=== PATIENT | male | born 1985 | race Caucasian/White ===

== ENCOUNTER 2016-12-12 15:46 | Emergency (ER) | payer OTHER ==
--- NOTE | 2016-12-12 18:32 | DIAGNOSTIC IMAGING REPORT ---
PROCEDURE: CT ABD/PELVIS WITH CONTRAST CLINICAL INDICATION: RECTAL ABSCESS TECHNIQUE: 125 ml of Isovue 300 were injected intravenously and axial images were obtained of the entire abdomen and pelvis with sagittal and coronal reformations. COMPARISON: None. FINDINGS: ABDOMEN: Lung base are clear. Heart size is normal. Liver, gallbladder, pancreas, spleen, adrenal glands, kidneys and abdominal aorta are normal. Malrotation of the bowel. Thickened terminal ileum. Wall thickening from the transverse to the proximal sigmoid colon but most severe in the descending colon , with adjacent inflammatory changes. No evidence of diverticula, abscess or free air. PELVIS: Normal appendix. Normal prostate and bladder. There is a 4 x 2 x 1 cm subcutaneous hypodense collection and medial aspect of the left buttock which may represent a small perirectal abscess versus phlegmon. No suspicious osseous lesions. IMPRESSION: 1. Thickened terminal ileum with inflammatory changes from the transverse to the proximal sigmoid colon, most prominent in the descending colon, suggestive of Crohn disease. No abscess or free air 2. Left perirectal abscess versus phlegmon 3. Bowel malrotation 4. Results discussed with Kaitlynn Sun All CT scans at this facility use dose modulation, iterative reconstruction, and/or weight-based dosing when appropriate to reduce radiation dose to as low as reasonably achievable.
--- NOTE | 2016-12-12 19:28 | ED CLINICAL REPORT ---
Clinical Report - Physicians/Mid Levels [facility] [address] [place] [address] 12/12/2016 15:47 Patient: HARVEY GAMBOA Time Seen: 16:05; initial patient contact, initial documentation, patient care assumed. Arrived- By private vehicle. Historian- patient. HISTORY OF PRESENT ILLNESS Chief Complaint: LESION. This started about 1 weeks ago and is still present and worsening. It was abrupt in onset and has been constant. Not itchy. It is described as painful and burning. It has been located on the perineum and in the perianal area. No cause has been identified. (c/o x2 abscesses, one near rectum, and the other one in the perineum area). Similar symptoms previously: Several times, worse. ( has had surgery prior for rectal abscess and fistula). Recent medical care: Not recently seen/assessed. REVIEW OF SYSTEMS The patient has had fever and chills. No difficulty breathing, abdominal pain, diarrhea or vomiting. All systems otherwise negative, except as recorded above. PAST HISTORY See nurses notes. PROBLEMS: Asbergers. Crohns. --16:12 Magan Stewart R.N. ADDITIONAL SURGERIES: Fistula. --16:09 Magan Stewart R.N. SOCIAL HISTORY Never smoker. No alcohol use or drug use. No recent travel. Is a local resident. FAMILY HISTORY Negative. ADDITIONAL NOTES The nursing notes have been reviewed with agreement regarding the chief complaint, HPI, ROS, PMH and patient medications and allergies. PHYSICAL EXAM Vital Signs: 12/12/2016 15:59 BP: 150/73. HR: 104. RR: 18. O2 saturation: 93%. Temp: 102.8 F. Pain level now: 2/10. Have been reviewed as abnormal and appear to be correct. Blood pressure normal. Tachycardic. Respiratory rate normal. Febrile. Oxygen saturation normal. Appearance: Alert. Oriented X3. No acute distress. Anxious. Eyes: Pupils equal, round and reactive to light. Conjunctivae and eyelids normal. Neck: Neck supple. CVS: Normal heart rate and rhythm. Heart sounds normal. Respiratory: No respiratory distress. Breath sounds normal. Chest nontender. Abdomen: Nontender. No organomegaly. Rectal: Tenderness upon rectal exam. Small perirectal abscess with fluctuance. No pointing, drainage or cellulitis. Skin: Skin warm and dry. Normal skin color. No rash. Normal skin turgor. Single medium abscess with fluctuance and pointing to the perianal area and perirectal area. No drainage or cellulitis. Extremities: Normal external inspection. Extremities nontender. Neuro: Oriented X 3. No motor deficit. No sensory deficit. LABS, X-RAYS, AND EKG Abdominal CT: . IMPRESSION: 1. Thickened terminal ileum with inflammatory changes from the transverse to the proximal sigmoid colon, most prominent in the descending colon, suggestive of Crohn disease. No abscess or free air 2. Left perirectal abscess versus phlegmon 3. Bowel malrotation 4. Results discussed with Kaitlynn Sun All CT scans at this facility use dose modulation, iterative reconstruction, and/or weight-based dosing when appropriate to reduce radiation dose to as low as reasonably achievable. Electronically Final signed by:Jitendra Reina MD 12/12/2016 6:32:30 PM Technologist: DARYN. The study was interpreted by the radiologist and discussed with the radiologist. Interpretation time: 1805. Laboratory Tests: CBC w Diff: (ABBI: 12/12/2016 16:30) ( MsgRcvd 12/12/2016 16:49) Final results Test Result Flag Units (Reference) WHITE BLOOD COUNT 7.9 K/uL (4.5-11.5) RED BLOOD COUNT 4.02 L M/uL (4.50-5.90) HEMOGLOBIN 9.4 L gm/dL (13.5-17.5) HEMATOCRIT 29.5 L % (41.0-53.0) MEAN CELL VOLUME 73 L fL (80-100) MEAN CORPUSCULAR HGB 23 L pg (26-34) MEAN CORPUSCULAR HGB CONC 32 g/dL (31-37) RED CELL DISTRIBUTION WIDTH 17.6 H % (11.6-14.8) PLATELET COUNT 563 H K/uL (150-400) NEUTROPHIL % 77.4 H % (50-75) LYMPH % 8.1 L % (25-40) MONO % 11.1 % (3-14) EOSINOPHIL % 3.3 % (0-4) BASOPHIL % 0.1 % (0-2) Lactate, Serum: (ABBI: 12/12/2016 16:30) ( [facility] 12/12/2016 17:16) Final results Test Result Flag Units (Reference) LACTIC ACID 1.0 mmol/L (0.4-2.0) [id number]: (ABBI: 12/12/2016 16:30) ( [facility] 12/12/2016 17:19) Final results Test Result Flag Units (Reference) PROCALCITONIN <0.5 ng/mL (0-0.5) PCT Concentration: Interpretation : Risk/option for action PCT <=0.5 ng/mL : Systemic : Low risk forinfection(sepsis): progression to severeis not likely. : systemic infection.Local bacterial : CAUTION-PCT levelsinfection is : below 0.5 ng/mL do notpossible. : exclude an infection,because localizedinfections (withoutsystemic signs) may beassociated with suchlow levels. If PCT ismeasured very earlyafter a bacterialchallenge (usually <6hours), these valuesmay still be low. Inthis case PCT shouldbe re-assessed 6-24hours later. PCT >0.5 and : Systemic infection: Moderate risk for<= 2 ng/mL : (sepsis) is : progression to severepossible, but : systemic infection.other conditions : The patient should beare known to : closely monitoredelevate PCT. : both clinically andby re-assessing PCTwithin 6-24 hours. PCT > 2 ng/mL : Systemic infection: High risk for(sepsis) is likely: progression to severeunless other : systemic infection.causes are known. : PCT >= 10 ng/mL : Important systemic: High likelihood ofinflammatory : severe sepsis orresponse, almost : septic shock.exclusively due to:severe bacterial :sepsis or septic :shock. : CMP: (ABBI: 12/12/2016 16:30) ( MsgRcvd 12/12/2016 17:10) Final results Test Result Flag Units (Reference) GLUCOSE 116 H mg/dL (70-110) BUN 10 mg/dL (7-18) CREATININE 1.0 mg/dL (0.6-1.3) Estimated GFR >60 mL/min Estimated GFR- >60 mL/min Note: Persistent reduction over 3 months in eGFR<60 mL/min/1.73 m2 defines CKD. Patients with eGFR values>=60 mL/min/1.73 m2 may also have CKD if evidence ofpersistent proteinuria. Additional information may be foundat www.[email or web address].org. SODIUM 138 mmol/L (136-145) POTASSIUM 3.6 mmol/L (3.5-5.1) CHLORIDE 103 mmol/L (98-107) CARBON DIOXIDE 28 mmol/L (21-32) CALCIUM 8.1 L mg/dL (8.5-10.1) TOTAL PROTEIN 6.8 g/dL (6.4-8.2) ALBUMIN 2.5 L g/dL (3.3-5.0) BILIRUBIN, TOTAL 0.3 mg/dL (0.0-1.0) ALKALINE PHOSPHATASE 48 U/L (46-116) AST (SGOT) 11 L U/L (15-37) ALT (SGPT) 16 U/L (12-78) . PROGRESS AND PROCEDURES Incision & Drainage of Abscess: The abscess is located in the perianal area. The risks of the procedure, benefits and alternatives were explained. Consent was obtained. Local anesthesia provided using 1% lidocaine. Skin cleansed with Betadine. The abscess was incised with a #11 surgical blade. A small amount of pus was drained. Cavity was irrigated with saline and packed with gauze. Sample obtained for cultures. Estimated blood loss: 30 mL. ( abscess started to open and drain during visit here, pt had maxi pad on and it was filled with yellow drainage, probed to break up inoculates, packed with 1/4 inch plain, no iodoform available, pt tolerated procedure well even with his anxiety, nurse Magan at bedside as insurance agency manager). Course of Care: 1819. pt aware of results and waiting for surgery battery container finishing hand to call me back, possible admit/transfer. Discussed case with on-call health care provider, ([phone] Bucio, surgery, pt 's case discussed, asked to do simple I&D, at least open it and put packing in it). Reviewed test results. Agreed upon treatment plan. Health care provider will see patient in office. Patient counseled in person regarding the patient's stable condition, test results and diagnosis. Differential Diagnosis: I considered diverticulitis, colon cancer, ulcerative colitis, Crohn's disease, intussusception, small bowel obstruction, adhesions, bowel ischemia, bowel perforation, functional bowel problems and obstipation as a possible cause of abdominal pain in this patient. This is a partial list of diagnoses considered. Other possible considerations: rectal abscess, fistula. Above considerations are based on history, physical exam, reassessment, laboratory data and other information. Differential diagnosis was discussed with patient. Disposition: Discharged home in good and improved condition (19:28). Condition: good and stable. CLINICAL IMPRESSION Single deep abscess to the perirectal region with incision and drainage. INSTRUCTIONS (remove packing in 24-48 hrs). Warnings: GENERAL WARNINGS: Return or contact your physician immediately if your condition worsens or changes unexpectedly, if not improving as expected, or if other problems arise. Specifically return if problem worsens. Prescription Medications: Zofran 4 mg: Take 1 orally every six hours as needed for nausea/vomiting. Dispense ten (10). No refills. Substitution is permissible. Prednisone 20 mg: take 3 orally every day for 5 days. Dispense fifteen (15). No refills. Bactrim DS 800 mg / 160 mg: take 1 tablet orally every 12 hours for 10 days. No refill. Clindamycin 150 mg: take 1 capsule orally every 8 hours for 10 days. No refill. Dunn Loring 5 mg / 325 mg tablets: take 1 to 2 orally every 6 hours as needed for pain. Dispense fifteen (15). No refills. Substitution is permissible. Motrin 800 mg tablets: take 1 tablet orally every 8 hours as needed for pain. Dispense thirty (30). No refills. Substitution is permissible. Understanding of the discharge instructions verbalized by patient. Follow-up with: Nico Bucio MD, General Surgeon, , [facility], [address] [place] [address] Follow up in about two days even if well. Call for an appointment. Summary of care provided to patient. (Electronically signed by Kaitlynn Sun A.R.N.P. 12/12/2016 22:48)
--- NOTE | 2016-12-12 19:28 | ED ORDER SUMMARY ---
..... Patient: HARVEY GAMBOA OrderSheet [facility] VisitID: [id number] [place] [address] 31y, M Registration Date/Time: 12/12/2016 ORDER SHEET Weight: 109.3 kg (stated) Allergies: No Known Drug Allergy GENERAL ORDERS: Blood Culture (Yes) (flagyl) Urgent (16:17 12/12/2016 HBivens A.R.N.P.) (Ack 16:25 LNations ER Tech1) (18:30 JRomanelli R.N.) CBC w Diff Urgent (16:17 12/12/2016 HBivens A.R.N.P.) (Ack 16:25 LNations ER Tech1) (16:45 JRomanelli R.N.) CMP Urgent (16:17 12/12/2016 HBivens A.R.N.P.) (Ack 16:25 LNations ER Tech1) (16:45 JRomanelli R.N.) Lactate, Serum Urgent (16:17 12/12/2016 HBivens A.R.N.P.) (Ack 16:25 LNations ER Tech1) (16:45 JRomanelli R.N.) PCT (Procalcitonin) Urgent (16:17 12/12/2016 HBivens A.R.N.P.) (Ack 16:25 LNations ER Tech1) (16:45 JRomanelli R.N.) CT Abd/Pel w Cont (No) (pending) Urgent (16:18 12/12/2016 HBivens A.R.N.P.) (Ack 16:25 LNations ER Tech1) (17:44 MCampbell) Vitals (18:27 12/12/2016 HBivens A.R.N.P.) (Ack 18:28 LNations ER Tech1) (18:39 JRomanelli R.N.) I&D Tray (18:41 12/12/2016 HBivens A.R.N.P.) (19:33 JRomanelli R.N.) MEDICATION ORDERS: Acetaminophen PO 1,000 mg (NOW) (16:16 12/12/2016 HBivens A.R.N.P.) (17:02 JRomanelli R.N.) Lidocaine Injection 1% plain (NOW) (18:41 12/12/2016 HBivens A.R.N.P.) (19:34 JRomanelli R.N.) IV FLUIDS: IV NS : initial bolus 1000 mL (1000 mL/hr), then none - (NOW) (16:16 12/12/2016 HBivens A.R.N.P.) (17:03 JRomanelli R.N.) IV Saline Lock (16:17 12/12/2016 HBivens A.R.N.P.) (17:03 JRomanelli R.N.) Flagyl IV 500 mg/100mL (NOW) (18:21 12/12/2016 HBivens A.R.N.P.) (19:00 JRomanelli R.N.) Levaquin IV 750 mg/150 mL (NOW) (18:21 12/12/2016 HBivens A.R.N.P.) (20:34 JRomanelli R.N.) Solu-MEDROL IV 250 mg (NOW) (18:21 12/12/2016 HBivens A.R.N.P.) (19:01 JRomanelli R.N.) ORDER SHEET NOTES: [Electronically signed by Kaitlynn SunR.N.P. (22:48 12/12/2016)] [Electronically signed by Magan Stewart R.N. (00:14 12/13/2016)] [Electronically locked/signed by Magan Stewart R.N. (00:14 12/13/2016)]
--- NOTE | 2016-12-12 19:28 | ED NURSING NOTES ---
Clinical Report - Nurses [facility] [address] [place] [address] 12/12/2016 15:47 [id number] Triage time 15:55 Dec 12 2016. Acuity: LEVEL 3. Chief Complaint: SKIN LESION. Alert. PARVEZ COMA SCORE: [place] Coma Scale: 15- eyes open spontaneously (4); best verbal response- oriented x 4 (5); best motor response- obeys commands (6). --16:17 Magan Stewart R.N. 15:59 12/12/16. BP: 150/73. HR: 104. RR: 18. O2 saturation: 93% on room air. Temp: 102.8 F (oral). Pain level now: 07/22. --16:17 Magan Stewart R.N. Weight: 109.3 kg stated. Height/Length: 66 inches Per Patient. BMI: 38.9. --16:00 Magan Stewart R.N. Medications Flagyl Oral 500 mg, 2x a day. Remicade Intravenous (Solution Reconstituted 100 mg) 500mg, every 8 weeks. --16:03 Magan Stewart R.N. AmLODIPine Besylate Oral 5 mg, daily. --16:04 Magan Stewart R.N. Tylenol Oral 500 mg, 4x a day. --16:05 Magan Stewart R.N. Oxyfloxcin otic gtts 10 gtts , daily. --16:07 Magan Stewart R.N. Allergies No Known Drug Allergy. --16:04 Magan Stewart R.N. Medication/allergy information source: the patient. --16:17 Magan Stewart R.N. History ( Perineal Abscesses. Pt states that he has two abscesses located betweenthe scrotum and the anus.). Reported as (perineum). Onset. (about 7 days ago). It is described as burning and painful. Treatment [employer]: (Antibiotic). PAST MEDICAL HX: Immunizations: up-to-date. SOCIAL HX: No alcohol use or drug use. ABUSE ASSESSMENT: No report of abuse. FALL RISK ASSESSMENT: Fall risk assessment completed. No fall risk identified. NUTRITIONAL RISK ASSESSMENT: The nutritional risk assessment revealed no deficiencies. FUNCTIONAL ASSESSMENT: Functional assessment: no impairments noted. LEARNING NEEDS ASSESSMENT: The learning needs assessment revealed no barriers. SKIN INTEGRITY ASSESSMENT: Skin integrity risk assessment completed. No skin integrity risk identified. --16:17 Magan Stewart R.N. PROBLEMS: Asbergers. Crohns. --16:12 Magan Stewart R.N. ADDITIONAL SURGERIES: Fistula. --16:09 Magan Stewart R.N. Interventions ID band on patient. To treatment room. --16:17 Magan Stewart R.N. PHYSICAL ASSESSMENT Ambulatory to room. GENERAL / NEURO / PSYCH: Alert. Appears in pain. Oriented X 4. HEENT: Mucous membranes are pink. RESPIRATORY: Respirations not labored. CVS: Cardiac rhythm: sinus tachycardia. SKIN: Skin is intact, warm and dry. Skin tenderness present- perineal. --16:18 Magan Stewart R.N. NURSING PROGRESS NOTES Patient gowned. Reassurance given to the patient. Patient identifiers checked. Call light placed in reach. Side rails up x 2. Bed placed in lowest position. Brakes of bed on. Patient ready for evaluation- chart flagged and [employer] notified. --16:19 Magan Stewart R.N. 16:38 12/12/2016 Site #1 started via IV in the left upper arm with an 20g angiocath, with aseptic technique and good blood return; one attempt. Blood drawn: rainbow set and cultures x1. Labeled in the presence of the patient and sent to the lab. Saline lock flushed with 10 mL saline. --17:03 Magan Stewart R.N. 16:47 12/12/2016 Acetaminophen (APAP) PO Tablets 1000 mg given. Allergies verified and confirmed 5 rights. --17:02 Magan Stewart R.N. 16:53 12/12/2016 Started bag #1 1000 mL IV Fluids IV NS (Saline); at 1000 mL/hr over 60 minute(s) via site #1 via IV pump. Allergies verified and confirmed 5 rights. IV patency established. IV site checked: no pain, redness, or swelling. IV flushed thoroughly pre- and post-medication administration. --17:03 Magan Stewart R.N. <<STRICKEN ENTRY-- 17:30 12/12/16. Patient transported to CT by stretcher with tech. --17:33 Magan Stewart R.N. --END STRIKE>> Correction --18:31 Magan Stewart R.N. <<STRICKEN ENTRY-- 18:30 12/12/16. Patient returned from CT by stretcher with tech. --18:31 Magan Stewart R.N. --END STRIKE>> Correction --18:39 Magan Stewart R.N. <<STRICKEN ENTRY-- 18:20. Patient transported to CT by stretcher with tech. --18:32 Magan Stewart R.N. --END STRIKE>> Correction --18:35 Magan Stewart R.N. 18:30 12/12/16. BP: 148/81. HR: 95. RR: 16. O2 saturation: 94%. Temp: 100.7 F (oral). Pain level now: 0/10. --18:38 Magan Stewart R.N. Patient transported to CT by stretcher with tech. ([id number]). --18:38 Magan Stewart R.N. 18:36 12/12/2016 IV Fluids IV NS Bag Change: bag #1 infused. Total amount infused: 1000. STARTED bag #2 (1000 mL) at 250 mL/hr via IV pump. Confirmed 5 rights. IV patency established. IV site checked: no pain, redness, or swelling. IV flushed thoroughly. --18:46 Magan Stewart R.N. 18:46 12/12/2016 SOLU-MEDROL (MethylPREDNISolone Sodium Succ) IVP 250 mg given over 2 minute(s) via site #1. Allergies verified and confirmed 5 rights. IV patency established. IV site checked: no pain, redness, or swelling. IV flushed thoroughly pre- and post-medication administration. IVP given by RN. --19:01 Magan Stewart R.N. 18:50 12/12/2016 Started 500 mg of Flagyl (MetroNIDAZOLE in NaCl) IVPB in bag #1 100 mL; at 100 mL/hr over 60 minute(s) via site #1 via IV pump. Allergies verified and confirmed 5 rights. IV patency established. IV site checked: no pain, redness, or swelling. IV flushed thoroughly pre- and post-medication administration. --19:00 Magan Stewart R.N. 19:09 12/12/2016 Lidocaine 1% Injectable 20mL * Subcutaneous 8mL --19:34 Magan Stewart R.N. 19:30 12/12/16. BP: 153/78. HR: 97. RR: 18. O2 saturation: 97% on room air. Pain level now: 10/19. --20:29 Magan Stewart R.N. 19:50 12/12/2016 Levaquin * IVPB 750 mg in 150 mL NSS --20:34 Magan Stewart R.N. 19:50 12/12/2016 Flagyl IVPB Discontinued: bag #1 infused. Total amount infused: 100 mL. IV patency established. IV site checked: no pain, redness, or swelling. IV flushed thoroughly. --20:31 Magan Stewart R.N. 20:30 12/12/16. BP: 150/74. HR: 95. RR: 18. O2 saturation: 98% on room air. --20:37 Magan Stewart R.N. 21:20 12/12/2016 Site #1 removed upon discharge. Catheter intact. Manual pressure, pressure dressing and bandaid applied. --22:49 Magan Stewart R.N. 21:20 12/12/2016 IV Fluids IV NS Discontinued: bag #2 discontinued upon discharge. Total amount infused: 700 mL. IV patency established. IV site checked: no pain, redness, or swelling. IV flushed thoroughly. --22:46 Magan Stewart R.N. 21:20 12/12/2016 Levaquin IVPB Discontinued: bag #1 infused. Total amount infused: 150 mL. IV patency established. IV site checked: no pain, redness, or swelling. IV flushed thoroughly. --22:47 Magan Stewart R.N. DISPOSITION / DISCHARGE <<STRICKEN ENTRY-- 17:15 12/12/16. BP: 126/47. HR: 57. RR: 20. O2 saturation: 98% on room air. Temp: 96.8 F (oral). Pain level now: 0/10. --17:44 Magan Stewart R.N. --END STRIKE>> Charted on wrong patient. --17:53 Magan Stewart R.N. 21:20 12/12/16. BP: 142/80. HR: 85. RR: 18. O2 saturation: 99% on room air. Temp: 98.8 F (oral). Pain level now: 2/10. Additional comments: Perineal pain. --22:37 Magan Stewart R.N. Departure time: 2124. --22:38 Magan Stewart R.N. 21:25. Condition at departure: improved. No learning barriers present. Reviewed medication(s) (prescription given to pt). Reviewed wound care instructions. Reviewed referral to family practice. Patient verbalized understanding. Written instructions provided in Georgian. The patient was discharged by the nurse practitioner. He was discharged home and accompanied by family. He left the Emergency Department ambulatory and via private vehicle. Family member driving. --22:43 Magan Stewart R.N. Locked/Released at 12/13/2016 0:14 by Magan Stewart R.N.
--- NOTE | 2016-12-12 19:28 | ED CLINICAL REPORT ---
Clinical Report - Physicians/Mid Levels Formerly [facility] [address] [place] [address] 12/12/2016 15:47 Patient: HARVEY GAMBOA Time Seen: 16:05; initial patient contact, initial documentation, patient care assumed. Arrived- By private vehicle. Historian- patient. HISTORY OF PRESENT ILLNESS Chief Complaint: LESION. This started about 1 weeks ago and is still present and worsening. It was abrupt in onset and has been constant. Not itchy. It is described as painful and burning. It has been located on the perineum and in the perianal area. No cause has been identified. (c/o x2 abscesses, one near rectum, and the other one in the perineum area). Similar symptoms previously: Several times, worse. ( has had surgery prior for rectal abscess and fistula). Recent medical care: Not recently seen/assessed. REVIEW OF SYSTEMS The patient has had fever and chills. No difficulty breathing, abdominal pain, diarrhea or vomiting. All systems otherwise negative, except as recorded above. PAST HISTORY See nurses notes. PROBLEMS: Asbergers. Crohns. --16:12 Magan Stewart R.N. ADDITIONAL SURGERIES: Fistula. --16:09 Magan Stewart R.N. SOCIAL HISTORY Never smoker. No alcohol use or drug use. No recent travel. Is a local resident. FAMILY HISTORY Negative. ADDITIONAL NOTES The nursing notes have been reviewed with agreement regarding the chief complaint, HPI, ROS, PMH and patient medications and allergies. PHYSICAL EXAM Vital Signs: 12/12/2016 15:59 BP: 150/73. HR: 104. RR: 18. O2 saturation: 93%. Temp: 102.8 F. Pain level now: 2/10. Have been reviewed as abnormal and appear to be correct. Blood pressure normal. Tachycardic. Respiratory rate normal. Febrile. Oxygen saturation normal. Appearance: Alert. Oriented X3. No acute distress. Anxious. Eyes: Pupils equal, round and reactive to light. Conjunctivae and eyelids normal. Neck: Neck supple. CVS: Normal heart rate and rhythm. Heart sounds normal. Respiratory: No respiratory distress. Breath sounds normal. Chest nontender. Abdomen: Nontender. No organomegaly. Rectal: Tenderness upon rectal exam. Small perirectal abscess with fluctuance. No pointing, drainage or cellulitis. Skin: Skin warm and dry. Normal skin color. No rash. Normal skin turgor. Single medium abscess with fluctuance and pointing to the perianal area and perirectal area. No drainage or cellulitis. Extremities: Normal external inspection. Extremities nontender. Neuro: Oriented X 3. No motor deficit. No sensory deficit. LABS, X-RAYS, AND EKG Abdominal CT: . IMPRESSION: 1. Thickened terminal ileum with inflammatory changes from the transverse to the proximal sigmoid colon, most prominent in the descending colon, suggestive of Crohn disease. No abscess or free air 2. Left perirectal abscess versus phlegmon 3. Bowel malrotation 4. Results discussed with Kaitlynn Sun All CT scans at this facility use dose modulation, iterative reconstruction, and/or weight-based dosing when appropriate to reduce radiation dose to as low as reasonably achievable. Electronically Final signed by:Jitendra Reina MD 12/12/2016 6:32:30 PM Technologist: DARYN. The study was interpreted by the radiologist and discussed with the radiologist. Interpretation time: 1805. Laboratory Tests: CBC w Diff: (ABBI: 12/12/2016 16:30) ( MsgRcvd 12/12/2016 16:49) Final results Test Result Flag Units (Reference) WHITE BLOOD COUNT 7.9 K/uL (4.5-11.5) RED BLOOD COUNT 4.02 L M/uL (4.50-5.90) HEMOGLOBIN 9.4 L gm/dL (13.5-17.5) HEMATOCRIT 29.5 L % (41.0-53.0) MEAN CELL VOLUME 73 L fL (80-100) MEAN CORPUSCULAR HGB 23 L pg (26-34) MEAN CORPUSCULAR HGB CONC 32 g/dL (31-37) RED CELL DISTRIBUTION WIDTH 17.6 H % (11.6-14.8) PLATELET COUNT 563 H K/uL (150-400) NEUTROPHIL % 77.4 H % (50-75) LYMPH % 8.1 L % (25-40) MONO % 11.1 % (3-14) EOSINOPHIL % 3.3 % (0-4) BASOPHIL % 0.1 % (0-2) Lactate, Serum: (ABBI: 12/12/2016 16:30) ( [facility] 12/12/2016 17:16) Final results Test Result Flag Units (Reference) LACTIC ACID 1.0 mmol/L (0.4-2.0) [id number]: (ABBI: 12/12/2016 16:30) ( [facility] 12/12/2016 17:19) Final results Test Result Flag Units (Reference) PROCALCITONIN <0.5 ng/mL (0-0.5) PCT Concentration: Interpretation : Risk/option for action PCT <=0.5 ng/mL : Systemic : Low risk forinfection(sepsis): progression to severeis not likely. : systemic infection.Local bacterial : CAUTION-PCT levelsinfection is : below 0.5 ng/mL do notpossible. : exclude an infection,because localizedinfections (withoutsystemic signs) may beassociated with suchlow levels. If PCT ismeasured very earlyafter a bacterialchallenge (usually <6hours), these valuesmay still be low. Inthis case PCT shouldbe re-assessed 6-24hours later. PCT >0.5 and : Systemic infection: Moderate risk for<= 2 ng/mL : (sepsis) is : progression to severepossible, but : systemic infection.other conditions : The patient should beare known to : closely monitoredelevate PCT. : both clinically andby re-assessing PCTwithin 6-24 hours. PCT > 2 ng/mL : Systemic infection: High risk for(sepsis) is likely: progression to severeunless other : systemic infection.causes are known. : PCT >= 10 ng/mL : Important systemic: High likelihood ofinflammatory : severe sepsis orresponse, almost : septic shock.exclusively due to:severe bacterial :sepsis or septic :shock. : CMP: (ABBI: 12/12/2016 16:30) ( MsgRcvd 12/12/2016 17:10) Final results Test Result Flag Units (Reference) GLUCOSE 116 H mg/dL (70-110) BUN 10 mg/dL (7-18) CREATININE 1.0 mg/dL (0.6-1.3) Estimated GFR >60 mL/min Estimated GFR- >60 mL/min Note: Persistent reduction over 3 months in eGFR<60 mL/min/1.73 m2 defines CKD. Patients with eGFR values>=60 mL/min/1.73 m2 may also have CKD if evidence ofpersistent proteinuria. Additional information may be foundat www.kidney.org. SODIUM 138 mmol/L (136-145) POTASSIUM 3.6 mmol/L (3.5-5.1) CHLORIDE 103 mmol/L (98-107) CARBON DIOXIDE 28 mmol/L (21-32) CALCIUM 8.1 L mg/dL (8.5-10.1) TOTAL PROTEIN 6.8 g/dL (6.4-8.2) ALBUMIN 2.5 L g/dL (3.3-5.0) BILIRUBIN, TOTAL 0.3 mg/dL (0.0-1.0) ALKALINE PHOSPHATASE 48 U/L (46-116) AST (SGOT) 11 L U/L (15-37) ALT (SGPT) 16 U/L (12-78) . PROGRESS AND PROCEDURES Incision & Drainage of Abscess: The abscess is located in the perianal area. The risks of the procedure, benefits and alternatives were explained. Consent was obtained. Local anesthesia provided using 1% lidocaine. Skin cleansed with Betadine. The abscess was incised with a #11 surgical blade. A small amount of pus was drained. Cavity was irrigated with saline and packed with gauze. Sample obtained for cultures. Estimated blood loss: 30 mL. ( abscess started to open and drain during visit here, pt had maxi pad on and it was filled with yellow drainage, probed to break up inoculates, packed with 1/4 inch plain, no iodoform available, pt tolerated procedure well even with his anxiety, nurse Magan at bedside as atg java developer). Course of Care: 1819. pt aware of results and waiting for surgery educational specialist to call me back, possible admit/transfer. Discussed case with on-call health care provider, ([phone] Bucio, surgery, pt 's case discussed, asked to do simple I&D, at least open it and put packing in it). Reviewed test results. Agreed upon treatment plan. Health care provider will see patient in office. Patient counseled in person regarding the patient's stable condition, test results and diagnosis. Differential Diagnosis: I considered diverticulitis, colon cancer, ulcerative colitis, Crohn's disease, intussusception, small bowel obstruction, adhesions, bowel ischemia, bowel perforation, functional bowel problems and obstipation as a possible cause of abdominal pain in this patient. This is a partial list of diagnoses considered. Other possible considerations: rectal abscess, fistula. Above considerations are based on history, physical exam, reassessment, laboratory data and other information. Differential diagnosis was discussed with patient. Disposition: Discharged home in good and improved condition (19:28). Condition: good and stable. CLINICAL IMPRESSION Single deep abscess to the perirectal region with incision and drainage. INSTRUCTIONS (remove packing in 24-48 hrs). Warnings: GENERAL WARNINGS: Return or contact your physician immediately if your condition worsens or changes unexpectedly, if not improving as expected, or if other problems arise. Specifically return if problem worsens. Prescription Medications: Zofran 4 mg: Take 1 orally every six hours as needed for nausea/vomiting. Dispense ten (10). No refills. Substitution is permissible. Prednisone 20 mg: take 3 orally every day for 5 days. Dispense fifteen (15). No refills. Bactrim DS 800 mg / 160 mg: take 1 tablet orally every 12 hours for 10 days. No refill. Clindamycin 150 mg: take 1 capsule orally every 8 hours for 10 days. No refill. [place] 5 mg / 325 mg tablets: take 1 to 2 orally every 6 hours as needed for pain. Dispense fifteen (15). No refills. Substitution is permissible. Motrin 800 mg tablets: take 1 tablet orally every 8 hours as needed for pain. Dispense thirty (30). No refills. Substitution is permissible. Understanding of the discharge instructions verbalized by patient. Follow-up with: Nico Bucio MD, General Surgeon, , [facility], [address] [place] [address] Follow up in about two days even if well. Call for an appointment. Summary of care provided to patient. (Electronically signed by Kaitlynn Sun A.R.N.P. 12/12/2016 22:48)
--- NOTE | 2016-12-12 19:28 | ED ORDER SUMMARY ---
..... Patient: HARVEY GAMBOA OrderSheet [facility] VisitID: [id number] [place] [address] 31y, M Registration Date/Time: 12/12/2016 ORDER SHEET Weight: 109.3 kg (stated) Allergies: No Known Drug Allergy GENERAL ORDERS: Blood Culture (Yes) (flagyl) Urgent (16:17 12/12/2016 HBivens A.R.N.P.) (Ack 16:25 LNations ER Tech1) (18:30 JRomanelli R.N.) CBC w Diff Urgent (16:17 12/12/2016 HBivens A.R.N.P.) (Ack 16:25 LNations ER Tech1) (16:45 JRomanelli R.N.) CMP Urgent (16:17 12/12/2016 HBivens A.R.N.P.) (Ack 16:25 LNations ER Tech1) (16:45 JRomanelli R.N.) Lactate, Serum Urgent (16:17 12/12/2016 HBivens A.R.N.P.) (Ack 16:25 LNations ER Tech1) (16:45 JRomanelli R.N.) PCT (Procalcitonin) Urgent (16:17 12/12/2016 HBivens A.R.N.P.) (Ack 16:25 LNations ER Tech1) (16:45 JRomanelli R.N.) CT Abd/Pel w Cont (No) (pending) Urgent (16:18 12/12/2016 HBivens A.R.N.P.) (Ack 16:25 LNations ER Tech1) (17:44 MCampbell) Vitals (18:27 12/12/2016 HBivens A.R.N.P.) (Ack 18:28 LNations ER Tech1) (18:39 JRomanelli R.N.) I&D Tray (18:41 12/12/2016 HBivens A.R.N.P.) (19:33 JRomanelli R.N.) MEDICATION ORDERS: Acetaminophen PO 1,000 mg (NOW) (16:16 12/12/2016 HBivens A.R.N.P.) (17:02 JRomanelli R.N.) Lidocaine Injection 1% plain (NOW) (18:41 12/12/2016 HBivens A.R.N.P.) (19:34 JRomanelli R.N.) IV FLUIDS: IV NS : initial bolus 1000 mL (1000 mL/hr), then none - (NOW) (16:16 12/12/2016 HBivens A.R.N.P.) (17:03 JRomanelli R.N.) IV Saline Lock (16:17 12/12/2016 HBivens A.R.N.P.) (17:03 JRomanelli R.N.) Flagyl IV 500 mg/100mL (NOW) (18:21 12/12/2016 HBivens A.R.N.P.) (19:00 JRomanelli R.N.) Levaquin IV 750 mg/150 mL (NOW) (18:21 12/12/2016 HBivens A.R.N.P.) (20:34 JRomanelli R.N.) Solu-MEDROL IV 250 mg (NOW) (18:21 12/12/2016 HBivens A.R.N.P.) (19:01 JRomanelli R.N.) ORDER SHEET NOTES: [Electronically signed by Kaitlynn SunR.N.P. (22:48 12/12/2016)] [Electronically signed by Magan Stewart R.N. (00:14 12/13/2016)] [Electronically locked/signed by Magan Stewart R.N. (00:14 12/13/2016)]
--- NOTE | 2016-12-13 00:15 | ED MAR SUMMARY ---
..... Medication Administration Record [address] [place] [address] Patient: HARVEY GAMBOA Visit ID: [id number] 31y, M Weight: 109.3 kg Height/Length: 66 in BMI: 38.9 ALLERGIES: No Known Drug Allergy Given 16:47 12/12/2016 Magan Stewart R.N. Medication Administered: ACETAMINOPHEN [PO] (APAP), Dose: 1000 mg Tablets PO. Medication Ordered: Acetaminophen PO 1,000 mg (NOW). Start 16:53 12/12/2016 Magan Stewart R.N., Stop 21:20 12/12/2016 Magan Stewart R.N. Medication Administered: IV NS (SALINE), Dose: IV Fluids over 60 minute(s), Rate: 1000 mL/hr, Dispensed: 1000 mL bag, Site: #1 left upper arm. Medication Ordered: IV NS : initial bolus 1000 mL (1000 mL/hr), then none - (NOW). Given 18:46 12/12/2016 Magan Stewart R.N. Medication Administered: SOLU-MEDROL [IVP] (METHYLPREDNISOLONE SODIUM SUCC), Dose: 250 mg IVP over 2 minute(s), Site: #1 left upper arm. Medication Ordered: Solu-MEDROL IV 250 mg (NOW). Start 18:50 12/12/2016 Magan Stewart R.N., Stop 19:50 12/12/2016 Magan Stewart R.N. Medication Administered: FLAGYL [IVPB] (METRONIDAZOLE IN NACL), Dose: 500 mg IVPB over 60 minute(s), Rate: 100 mL/hr, Dispensed: 100 mL bag, Site: #1 left upper arm. Medication Ordered: Flagyl IV 500 mg/100mL (NOW). Given 19:09 12/12/2016 Magan Stewart R.N. Medication Administered: Lidocaine 1% Injectable 20mL *, Dose: 8mL * Subcutaneous. Medication Ordered: Lidocaine Injection 1% plain (NOW). Start 19:50 12/12/2016 Magan Stewart R.N., Stop 21:20 12/12/2016 Magan Stewart R.N. Medication Administered: Levaquin *, Dose: 750 mg * IVPB. Medication Ordered: Levaquin IV 750 mg/150 mL (NOW).
--- NOTE | 2016-12-13 00:15 | ED MAR SUMMARY ---
..... Medication Administration Record [facility] [address] [place] [address] Patient: HARVEY GAMBOA Visit ID: [id number] 31y, M Weight: 109.3 kg Height/Length: 66 in BMI: 38.9 ALLERGIES: No Known Drug Allergy Given 16:47 12/12/2016 Magan Stewart R.N. Medication Administered: ACETAMINOPHEN [PO] (APAP), Dose: 1000 mg Tablets PO. Medication Ordered: Acetaminophen PO 1,000 mg (NOW). Start 16:53 12/12/2016 Magan Stewart R.N., Stop 21:20 12/12/2016 Magan Stewart R.N. Medication Administered: IV NS (SALINE), Dose: IV Fluids over 60 minute(s), Rate: 1000 mL/hr, Dispensed: 1000 mL bag, Site: #1 left upper arm. Medication Ordered: IV NS : initial bolus 1000 mL (1000 mL/hr), then none - (NOW). Given 18:46 12/12/2016 Magan Stewart R.N. Medication Administered: SOLU-MEDROL [IVP] (METHYLPREDNISOLONE SODIUM SUCC), Dose: 250 mg IVP over 2 minute(s), Site: #1 left upper arm. Medication Ordered: Solu-MEDROL IV 250 mg (NOW). Start 18:50 12/12/2016 Magan Stewart R.N., Stop 19:50 12/12/2016 Magan Stewart R.N. Medication Administered: FLAGYL [IVPB] (METRONIDAZOLE IN NACL), Dose: 500 mg IVPB over 60 minute(s), Rate: 100 mL/hr, Dispensed: 100 mL bag, Site: #1 left upper arm. Medication Ordered: Flagyl IV 500 mg/100mL (NOW). Given 19:09 12/12/2016 Magan Stewart R.N. Medication Administered: Lidocaine 1% Injectable 20mL *, Dose: 8mL * Subcutaneous. Medication Ordered: Lidocaine Injection 1% plain (NOW). Start 19:50 12/12/2016 Magan Stewart R.N., Stop 21:20 12/12/2016 Magan Stewart R.N. Medication Administered: Levaquin *, Dose: 750 mg * IVPB. Medication Ordered: Levaquin IV 750 mg/150 mL (NOW).
--- NOTE | 2016-12-13 00:15 | ED MED RECONCILIATION SUMMARY ---
Patient: HARVEY GAMBOA Medication Reconciliation Report [facility] VisitID: [id number] [place] [address] 31y, M Registration Date/Time: 12/12/2016 Weight: 109.3 kg Height/Length: 66 in. BMI: 38.9 ALLERGIES: No Known Drug Allergy The patient's Home Medications are listed below: THE FOLLOWING MEDICATIONS NEED TO BE RECONCILED: AmLODIPine Besylate Oral 5 mg, daily Flagyl Oral 500 mg, 2x a day Oxyfloxcin otic gtts 10 gtts , daily Remicade Intravenous (100 mg) 500mg, every 8 weeks Tylenol Oral 500 mg, 4x a day The source(s) of the original Home Medication information: patient The following Medications were given to the patient in the Emergency Department: Acetaminophen [PO] PO 1000 mg, administered: 12/12/2016 4:47:00 PM IV NS IV Fluids bolus 0, then 1000 mL/hr, administered: 12/12/2016 4:53:00 PM Flagyl [IVPB] IVPB bolus 0, then 500 mg 100 mL/hr, administered: 12/12/2016 6:50:00 PM SOLU-MEDROL [IVP] IVP 250 mg, administered: 12/12/2016 6:46:00 PM Lidocaine 1% Injectable 20mL Subcutaneous 8mL, administered: 12/12/2016 7:09:00 PM Levaquin IVPB bolus 0, then 750 mg, administered: 12/12/2016 7:50:00 PM The following Medications were prescribed to the patient: Zofran 4 mg: Take 1 orally every six hours as needed for nausea/vomiting. Dispense ten (10). No refills. Substitution is permissible. -- Kaitlynn Sun, A.R.N.P. Prednisone 20 mg: take 3 orally every day for 5 days. Dispense fifteen (15). No refills. -- Kaitlynn Sun, A.R.N.P. Bactrim DS 800 mg / 160 mg: take 1 tablet orally every 12 hours for 10 days. No refill. -- Kaitlynn Sun, A.R.N.P. Clindamycin 150 mg: take 1 capsule orally every 8 hours for 10 days. No refill. -- Kaitlynn Sun A.R.NOlyPOly [place] 5 mg / 325 mg tablets: take 1 to 2 orally every 6 hours as needed for pain. Dispense fifteen (15). No refills. Substitution is permissible. -- Kaitlynn Sun A.R.NOlyP. Motrin 800 mg tablets: take 1 tablet orally every 8 hours as needed for pain. Dispense thirty (30). No refills. Substitution is permissible. -- Kaitlynn Sun A.R.NOlyP.
--- NOTE | 2016-12-13 00:15 | ED MED RECONCILIATION SUMMARY ---
Patient: HARVEY GAMBOA Medication Reconciliation Report [facility] VisitID: [id number] [place] [address] 31y, M Registration Date/Time: 12/12/2016 Weight: 109.3 kg Height/Length: 66 in. BMI: 38.9 ALLERGIES: No Known Drug Allergy The patient's Home Medications are listed below: THE FOLLOWING MEDICATIONS NEED TO BE RECONCILED: AmLODIPine Besylate Oral 5 mg, daily Flagyl Oral 500 mg, 2x a day Oxyfloxcin otic gtts 10 gtts , daily Remicade Intravenous (100 mg) 500mg, every 8 weeks Tylenol Oral 500 mg, 4x a day The source(s) of the original Home Medication information: patient The following Medications were given to the patient in the Emergency Department: Acetaminophen [PO] PO 1000 mg, administered: 12/12/2016 4:47:00 PM IV NS IV Fluids bolus 0, then 1000 mL/hr, administered: 12/12/2016 4:53:00 PM Flagyl [IVPB] IVPB bolus 0, then 500 mg 100 mL/hr, administered: 12/12/2016 6:50:00 PM SOLU-MEDROL [IVP] IVP 250 mg, administered: 12/12/2016 6:46:00 PM Lidocaine 1% Injectable 20mL Subcutaneous 8mL, administered: 12/12/2016 7:09:00 PM Levaquin IVPB bolus 0, then 750 mg, administered: 12/12/2016 7:50:00 PM The following Medications were prescribed to the patient: Zofran 4 mg: Take 1 orally every six hours as needed for nausea/vomiting. Dispense ten (10). No refills. Substitution is permissible. -- Kaitlynn Sun, A.R.N.P. Prednisone 20 mg: take 3 orally every day for 5 days. Dispense fifteen (15). No refills. -- Kaitlynn Sun, A.R.N.P. Bactrim DS 800 mg / 160 mg: take 1 tablet orally every 12 hours for 10 days. No refill. -- Kaitlynn Snu, A.R.N.P. Clindamycin 150 mg: take 1 capsule orally every 8 hours for 10 days. No refill. -- Kaitlynn Sun A.R.NOlyPOly [place] 5 mg / 325 mg tablets: take 1 to 2 orally every 6 hours as needed for pain. Dispense fifteen (15). No refills. Substitution is permissible. -- Kaitlynn Sun A.R.NOlyP. Motrin 800 mg tablets: take 1 tablet orally every 8 hours as needed for pain. Dispense thirty (30). No refills. Substitution is permissible. -- Kaitlynn Sun A.R.NOlyP.
--- NOTE | 2016-12-13 00:15 | ED DISCHARGE INSTRUCTIONS ---
Patient: HARVEY GAMBOA General Instructions [facility] VisitID: [id number] [place]ino Gu[place] [id number] 31y, M Registration Date/Time: 12/12/2016 Single deep abscess to the perirectal region with incision and drainage. INSTRUCTIONS (remove packing in 24-48 hrs). Warnings: GENERAL WARNINGS: Return or contact your physician immediately if your condition worsens or changes unexpectedly, if not improving as expected, or if other problems arise. Specifically return if problem worsens. Prescription Medications: Zofran 4 mg: Take 1 orally every six hours as needed for nausea/vomiting. Dispense ten (10). No refills. Substitution is permissible. Prednisone 20 mg: take 3 orally every day for 5 days. Dispense fifteen (15). No refills. Bactrim DS 800 mg / 160 mg: take 1 tablet orally every 12 hours for 10 days. No refill. Clindamycin 150 mg: take 1 capsule orally every 8 hours for 10 days. No refill. Leola 5 mg / 325 mg tablets: take 1 to 2 orally every 6 hours as needed for pain. Dispense fifteen (15). No refills. Substitution is permissible. Motrin 800 mg tablets: take 1 tablet orally every 8 hours as needed for pain. Dispense thirty (30). No refills. Substitution is permissible. Understanding of the discharge instructions verbalized by patient. Follow-up with: Nico Bucio MD, General Surgeon, , [facility], [address] [place] [address] Follow up in about two days even if well. Call for an appointment. Summary of care provided to patient. ADDITIONAL INFORMATION Abscess [Incision & Drainage] An abscess (sometimes called a boil) occurs when bacteria get trapped under the skin and begin to grow. Pus forms inside the abscess as the body responds to the bacteria. An abscess can occur with an insect bite, ingrown hair, blocked oil gland, pimple, cyst, or puncture wound. Treatment of your abscess has required an incision to drain the pus. If the abscess pocket was large, a gauze packing may have been inserted. This will need to be removed and possibly replaced on your next visit. Antibiotics are not required in the treatment of a simple abscess, unless the infection is spreading into the skin around the wound (known as cellulitis). Healing of the wound will take about one to two weeks depending on the size of the abscess. Healthy tissue will grow from the bottom and sides of the opening until it seals over. Home Care: The wound may drain for the first two days. Cover the wound with a clean dry dressing. If the dressing becomes soaked with blood or pus, change it. If a gauze packing was placed inside the abscess cavity, you may be advised to remove it yourself. You may do this in the shower. Once the packing is removed, you should wash the area in the shower or bath 3 to 4 times a day, until the skin opening has closed. If you were prescribed antibiotics, take them as directed until they are all gone. You may use acetaminophen (Tylenol) or ibuprofen (Motrin, Advil) to control pain, unless another pain medicine was prescribed. [ NOTE: If you have liver disease or ever had a stomach ulcer, talk with your doctor before using these medicines.] Follow Up with your doctor as advised by our staff. If a gauze packing was inserted in your wound, it should be removed in 1-2 days. Check your wound every day for the signs of worsening infection listed below. Get Prompt Medical Attention if any of the following occur: Increasing redness or swelling Red streaks in the skin leading away from the wound Increasing local pain or swelling Continued pus draining from the wound two days after treatment Fever of 100.4F (38C) or higher, or as directed by your healthcare provider Staph Infection (MRSA) "Staph" is the short name for the common bacteria called "staphylococcus aureus". Staph bacteria are often present on the skin without causing an infection. If it gets under the skin an infection occurs. This causes redness, tenderness, swelling and sometimes fluid drainage. MRSA stands for "Methicillin-Resistant Staph Aureus". Unlike a common staph infection, MRSA bacteria are resistant to the usual antibiotics and harder to treat. Also, MRSA is more toxic than common staph bacteria. It can spread quickly throughout the body and cause a life-threatening illness. MRSA is spread to others by direct physical contact with the bacteria. MRSA can also be transmitted from items contaminated by a person who has the bacteria, such as bandages, towels, bed sheets, or sports equipment. It is not spread through the air. Once you have a MRSA skin infection, you are at risk of having it recur in the future. If MRSA infection is suspected, the doctor may take a wound culture to confirm the diagnosis. Any abscess will be drained. One or sometimes two antibiotics that work against MRSA will be prescribed. Home Care: 1) Take any antibiotics prescribed exactly as directed until they are gone. 2) Follow the same washing procedures as outlined for Household Members below. 3) Keep draining wounds covered with clean, dry bandages. Change dressings as they become soiled. 4) You and those in contact with you should wash their hands frequently with soap and warm water or use an alcohol-based hand feed mill tender. Do this after each time you change the bandage or touch the wound. 5) Avoid sharing personal items such as towels, washcloths, razors, clothing, or uniforms. Wash soiled sheets, towels or clothes in hot water with laundry detergent. Use an automatic clothes dryer set on high to kill any remaining bacteria. 6) Remove any artificial nails and nail yakut. 7) If you use a gym, wipe down equipment before and after each use. Treatment Of Household Members If you have been diagnosed with possible MRSA infection, those living with you are at higher risk of carrying the bacteria on their skin or in their nose, even if there is no sign of infection. Bacteria must be removed from the skin of all household members (including you) at the same time, so that it is not passed back and forth. Advise them to remove the bacteria as follows: Wash your whole body (scalp to toes) daily for five days with Hibiclens (chlorhexidine). Scrub fingernails with a brush for one minute twice a day. If any skin infections are present (boils, abscess, infected cut) these must be treated by a doctor. Washing alone will not treat a MRSA infection. Clean counter tops and children's toys; do not share personal items such as toothbrush and razors. It is okay to share glasses, plates, utensils. If antibiotic ointment was prescribed use it as directed. Follow Up with your doctor or as advised by our staff. If a wound culture was taken, call as directed in two days to obtain the results. If the culture result is positive for MRSA, tell medical personnel in the future that you were treated for this type of infection. Get Prompt Medical Attention if any of the following occur: -- Increasing redness, swelling or pain -- Red streaks in the skin around the wound -- Weakness or dizziness -- New appearance of pus or drainage from the wound -- New fever over 100.4 F (38.0 C) Ondansetron Oral disintegrating tablet What is this medicine? ONDANSETRON (on BRIA se pooja) is used to treat nausea and vomiting caused by chemotherapy. It is also used to prevent or treat nausea and vomiting after surgery. How should I use this medicine? These tablets are made to dissolve in the mouth. Do not try to push the tablet through the foil backing. With dry hands, peel away the foil backing and gently remove the tablet. Place the tablet in the mouth and allow it to dissolve, then swallow. While you may take these tablets with water, it is not necessary to do so. Talk to your counter clerk tractor parts regarding the use of this medicine in children. Special care may be needed. What side effects may I notice from receiving this medicine? Side effects that you should report to your doctor or health healthcare advisory services manager as soon as possible: allergic reactions like skin rash, itching or hives, swelling of the face, lips, or tongue breathing problems dizziness fast or irregular heartbeat feeling faint or lightheaded, falls fever and chills swelling of the hands and feet tightness in the chest Side effects that usually do not require medical attention (report to your doctor or health healthcare advisory services manager if they continue or are bothersome): constipation or diarrhea headache What may interact with this medicine? Do not take this medicine with any of the following medications: -apomorphine -cisapride -dofetilide -dronedarone -pimozide -thioridazine -ziprasidone This medicine may also interact with the following medications: -carbamazepine -phenytoin -rifampicin -tramadol -other medicines that prolong the QT interval (cause an abnormal heart rhythm) What if I miss a dose? If you miss a dose, take it as soon as you can. If it is almost time for your next dose, take only that dose. Do not take double or extra doses. Where should I keep my medicine? Keep out of the reach of children. Store between 2 and 30 degrees C (36 and 86 degrees F). Throw away any unused medicine after the expiration date. What should I tell my health care provider before I take this medicine? They need to know if you have any of these conditions: heart disease history of irregular heartbeat liver disease low levels of magnesium or potassium in the blood an unusual or allergic reaction to ondansetron, granisetron, other medicines, foods, dyes, or preservatives or trying to get breast-feeding What should I watch for while using this medicine? Check with your doctor or health healthcare advisory services manager as soon as you can if you have any sign of an allergic reaction. Prednisone Oral tablet What is this medicine? PREDNISONE (PRED ni sone) is a corticosteroid. It is commonly used to treat inflammation of the skin, joints, lungs, and other organs. Common conditions treated include asthma, allergies, and arthritis. It is also used for other conditions, such as blood disorders and diseases of the adrenal glands. How should I use this medicine? Take this medicine by mouth with a glass of water. Follow the directions on the prescription label. Take this medicine with food. If you are taking this medicine once a day, take it in the morning. Do not take more medicine than you are told to take. Do not suddenly stop taking your medicine because you may develop a severe reaction. Your doctor will tell you how much medicine to take. If your doctor wants you to stop the medicine, the dose may be slowly lowered over time to avoid any side effects. Talk to your counter clerk tractor parts regarding the use of this medicine in children. Special care may be needed. What side effects may I notice from receiving this medicine? Side effects that you should report to your doctor or health healthcare advisory services manager as soon as possible: allergic reactions like skin rash, itching or hives, swelling of the face, lips, or tongue changes in emotions or moods changes in vision depressed mood eye pain fever or chills, cough, sore throat, pain or difficulty passing urine increased thirst swelling of ankles, feet Side effects that usually do not require medical attention (report to your doctor or health healthcare advisory services manager if they continue or are bothersome): confusion, excitement, restlessness headache nausea, vomiting skin problems, acne, thin and shiny skin trouble sleeping weight gain What may interact with this medicine? Do not take this medicine with any of the following medications: metyrapone mifepristone This medicine may also interact with the following medications: aminoglutethimide amphotericin B aspirin and aspirin-like medicines barbiturates certain medicines for diabetes, like glipizide or glyburide cholestyramine cholinesterase inhibitors cyclosporine digoxin diuretics ephedrine female hormones, like estrogens and control pills isoniazid ketoconazole NSAIDS, medicines for pain and inflammation, like ibuprofen or naproxen phenytoin rifampin toxoids vaccines warfarin What if I miss a dose? If you miss a dose, take it as soon as you can. If it is almost time for your next dose, talk to your doctor or health healthcare advisory services manager. You may need to miss a dose or take an extra dose. Do not take double or extra doses without advice. Where should I keep my medicine? Keep out of the reach of children. Store at room temperature between 15 and 30 degrees C (59 and 86 degrees F). Protect from light. Keep container tightly closed. Throw away any unused medicine after the expiration date. What should I tell my health care provider before I take this medicine? They need to know if you have any of these conditions: Theresa's syndrome diabetes glaucoma heart disease high blood pressure infection (especially a virus infection such as chickenpox, cold sores, or herpes) kidney disease liver disease mental illness myasthenia gravis osteoporosis seizures stomach or intestine problems thyroid disease an unusual or allergic reaction to lactose, prednisone, other medicines, foods, dyes, or preservatives or trying to get breast-feeding What should I watch for while using this medicine? Visit your doctor or health healthcare advisory services manager for regular checks on your progress. If you are taking this medicine over a prolonged period, carry an identification card with your name and address, the type and dose of your medicine, and your doctor's name and address. This medicine may increase your risk of getting an infection. Tell your doctor or health healthcare advisory services manager if you are around anyone with measles or chickenpox, or if you develop sores or blisters that do not heal properly. If you are going to have surgery, tell your doctor or health healthcare advisory services manager that you have taken this medicine within the last twelve months. Ask your doctor or health healthcare advisory services manager about your diet. You may need to lower the amount of salt you eat. This medicine may affect blood sugar levels. If you have diabetes, check with your doctor or health healthcare advisory services manager before you change your diet or the dose of your diabetic medicine. Sulfamethoxazole, Trimethoprim Oral tablet What is this medicine? SULFAMETHOXAZOLE; TRIMETHOPRIM or SMX-TMP (suhl fuh meth OK ashli zohl; trye METH oh prim) is a combination of a sulfonamide antibiotic and a second antibiotic, trimethoprim. It is used to treat or prevent certain kinds of bacterial infections. It will not work for colds, flu, or other viral infections. How should I use this medicine? Take this medicine by mouth with a full glass of water. Follow the directions on the prescription label. Take your medicine at regular intervals. Do not take it more often than directed. Do not skip doses or stop your medicine early. Talk to your counter clerk tractor parts regarding the use of this medicine in children. Special care may be needed. This medicine has been used in children as young as 2 months of age. What side effects may I notice from receiving this medicine? Side effects that you should report to your doctor or health healthcare advisory services manager as soon as possible: allergic reactions like skin rash or hives, swelling of the face, lips, or tongue breathing problems fever or chills, sore throat irregular heartbeat, chest pain joint or muscle pain pain or difficulty passing urine red pinpoint spots on skin redness, blistering, peeling or loosening of the skin, including inside the mouth unusual bleeding or bruising unusually weak or tired yellowing of the eyes or skin Side effects that usually do not require medical attention (report to your doctor or health healthcare advisory services manager if they continue or are bothersome): diarrhea dizziness headache loss of appetite nausea, vomiting nervousness What may interact with this medicine? Do not take this medicine with any of the following medications: aminobenzoate potassium dofetilide metronidazole This medicine may also interact with the following medications: RANGEL inhibitors like benazepril, enalapril, lisinopril, and ramipril cyclosporine digoxin diuretics indomethacin medicines for diabetes methenamine methotrexate phenytoin potassium supplements pyrimethamine sulfinpyrazone tricyclic antidepressants warfarin What if I miss a dose? If you miss a dose, take it as soon as you can. If it is almost time for your next dose, take only that dose. Do not take double or extra doses. Where should I keep my medicine? Keep out of the reach of children. Store at room temperature between 20 to 25 degrees C (68 to 77 degrees F). Protect from light. Throw away any unused medicine after the expiration date. What should I tell my health care provider before I take this medicine? They need to know if you have any of these conditions: anemia asthma being treated with anticonvulsants if you frequently drink alcohol containing drinks kidney disease liver disease low level of folic acid or corchvx-[id number]-pdsalnuvi dehydrogenase poor nutrition or malabsorption porphyria severe allergies thyroid disorder an unusual or allergic reaction to sulfamethoxazole, trimethoprim, sulfa drugs, other medicines, foods, dyes, or preservatives or trying to get breast-feeding What should I watch for while using this medicine? Tell your doctor or health healthcare advisory services manager if your symptoms do not improve. Drink several glasses of water a day to reduce the risk of kidney problems. Do not treat diarrhea with over the counter products. Contact your doctor if you have diarrhea that lasts more than 2 days or if it is severe and watery. This medicine can make you more sensitive to the sun. Keep out of the sun. If you cannot avoid being in the sun, wear protective clothing and use a sunscreen. Do not use sun lamps or tanning beds/booths. Clindamycin Hydrochloride Oral capsule What is this medicine? CLINDAMYCIN (KLIN da TRICE sin) is a lincosamide antibiotic. It is used to treat certain kinds of bacterial infections. It will not work for colds, flu, or other viral infections. How should I use this medicine? Take this medicine by mouth with a full glass of water. Follow the directions on the prescription label. You can take this medicine with food or on an empty stomach. If the medicine upsets your stomach, take it with food. Take your medicine at regular intervals. Do not take your medicine more often than directed. Take all of your medicine as directed even if you think your are better. Do not skip doses or stop your medicine early. Talk to your counter clerk tractor parts regarding the use of this medicine in children. Special care may be needed. What side effects may I notice from receiving this medicine? Side effects that you should report to your doctor or health healthcare advisory services manager as soon as possible: allergic reactions like skin rash, itching or hives, swelling of the face, lips, or tongue dark urine pain on swallowing redness, blistering, peeling or loosening of the skin, including inside the mouth unusual bleeding or bruising unusually weak or tired yellowing of eyes or skin Side effects that usually do not require medical attention (report to your doctor or health healthcare advisory services manager if they continue or are bothersome): diarrhea itching in the rectal or genital area joint pain nausea, vomiting stomach pain What may interact with this medicine? chloramphenicol erythromycin kaolin products What if I miss a dose? If you miss a dose, take it as soon as you can. If it is almost time for your next dose, take only that dose. Do not take double or extra doses. Where should I keep my medicine? Keep out of the reach of children. Store at room temperature between 20 and 25 degrees C (68 and 77 degrees F). Throw away any unused medicine after the expiration date. What should I tell my health care provider before I take this medicine? They need to know if you have any of these conditions: kidney disease liver disease stomach problems like colitis an unusual or allergic reaction to clindamycin, lincomycin, or other medicines, foods, dyes like tartrazine or preservatives or trying to get breast-feeding What should I watch for while using this medicine? Tell your doctor or healthcare professional if your symptoms do not start to get better or if they get worse. Do not treat diarrhea with over the counter products. Contact your doctor if you have diarrhea that lasts more than 2 days or if it is severe and watery. Hydrocodone Bitartrate, Acetaminophen Oral tablet What is this medicine? ACETAMINOPHEN; HYDROCODONE (a set a RICHARD erasmo fen; vera droe KOE done) is a pain reliever. It is used to treat mild to moderate pain. How should I use this medicine? Take this medicine by mouth. Swallow it with a full glass of water. Follow the directions on the prescription label. If the medicine upsets your stomach, take the medicine with food or milk. Do not take more than you are told to take. Talk to your counter clerk tractor parts regarding the use of this medicine in children. This medicine is not approved for use in children. What side effects may I notice from receiving this medicine? Side effects that you should report to your doctor or health healthcare advisory services manager as soon as possible: allergic reactions like skin rash, itching or hives, swelling of the face, lips, or tongue breathing problems confusion feeling faint or lightheaded, falls stomach pain yellowing of the eyes or skin Side effects that usually do not require medical attention (report to your doctor or health healthcare advisory services manager if they continue or are bothersome): nausea, vomiting stomach upset What may interact with this medicine? alcohol antihistamines isoniazid medicines for depression, anxiety, or psychotic disturbances medicines for sleep muscle relaxants naltrexone narcotic medicines (opiates) for pain phenobarbital ritonavir tramadol What if I miss a dose? If you miss a dose, take it as soon as you can. If it is almost time for your next dose, take only that dose. Do not take double or extra doses. Where should I keep my medicine? Keep out of the reach of children. This medicine can be abused. Keep your medicine in a safe place to protect it from theft. Do not share this medicine with anyone. Selling or giving away this medicine is dangerous and against the law. Store at room temperature between 15 and 30 degrees C (59 and 86 degrees F). Protect from light. Keep container tightly closed. Throw away any unused medicine after the expiration date. Discard unused medicine and used packaging carefully. Pets and children can be harmed if they find used or lost packages. What should I tell my health care provider before I take this medicine? They need to know if you have any of these conditions: brain tumor Crohn's disease, inflammatory bowel disease, or ulcerative colitis drink more than 3 alcohol-containing drinks per day drug abuse or addiction head injury heart or circulation problems kidney disease or problems going to the bathroom liver disease lung disease, asthma, or breathing problems an unusual or allergic reaction to acetaminophen, hydrocodone, other opioid analgesics, other medicines, foods, dyes, or preservatives or trying to get breast-feeding What should I watch for while using this medicine? Tell your doctor or health healthcare advisory services manager if your pain does not go away, if it gets worse, or if you have new or a different type of pain. You may develop tolerance to the medicine. Tolerance means that you will need a higher dose of the medicine for pain relief. Tolerance is normal and is expected if you take the medicine for a long time. Do not suddenly stop taking your medicine because you may develop a severe reaction. Your body becomes used to the medicine. This does NOT mean you are addicted. Addiction is a behavior related to getting and using a drug for a non-medical reason. If you have pain, you have a medical reason to take pain medicine. Your doctor will tell you how much medicine to take. If your doctor wants you to stop the medicine, the dose will be slowly lowered over time to avoid any side effects. You may get drowsy or dizzy when you first start taking the medicine or change doses. Do not drive, use machinery, or do anything that may be dangerous until you know how the medicine affects you. Stand or sit up slowly. There are different types of narcotic medicines (opiates) for pain. If you take more than one type at the same time, you may have more side effects. Give your health care provider a list of all medicines you use. Your doctor will tell you how much medicine to take. Do not take more medicine than directed. Call emergency for help if you have problems breathing. The medicine will cause constipation. Try to have a bowel movement at least every 2 to 3 days. If you do not have a bowel movement for 3 days, call your doctor or health healthcare advisory services manager. Too much acetaminophen can be very dangerous. Do not take Tylenol (acetaminophen) or medicines that contain acetaminophen with this medicine. Many non-prescription medicines contain acetaminophen. Always read the labels carefully. Ibuprofen Oral tablet What is this medicine? IBUPROFEN (eye BYOO proe fen) is a non-steroidal anti-inflammatory drug (NSAID). It is used for dental pain, fever, headaches or migraines, osteoarthritis, rheumatoid arthritis, or painful monthly periods. It can also relieve minor aches and pains caused by a cold, flu, or sore throat. How should I use this medicine? Take this medicine by mouth with a glass of water. Follow the directions on the prescription label. Take this medicine with food if your stomach gets upset. Try to not lie down for at least 10 minutes after you take the medicine. Take your medicine at regular intervals. Do not take your medicine more often than directed. A special MedGuide will be given to you by the pharmacist with each prescription and refill. Be sure to read this information carefully each time. Talk to your counter clerk [employer] parts regarding the use of this medicine in children. Special care may be needed. What side effects may I notice from receiving this medicine? Side effects that you should report to your doctor or health healthcare advisory services manager as soon as possible: allergic reactions like skin rash, itching or hives, swelling of the face, lips, or tongue black or bloody stools, blood in the urine or in vomit breathing problems changes in vision chest pain general ill feeling or flu-like symptoms nausea or vomiting redness, blistering, peeling or loosening of the skin, including inside the mouth slurred speech or weakness on one side of the body stomach pain unexplained weight gain or swelling unusually weak or tired yellowing of eyes or skin Side effects that usually do not require medical attention (report to your doctor or health healthcare advisory services manager if they continue or are bothersome): constipation or diarrhea dizziness gas or heartburn stomach upset What may interact with this medicine? Do not take this medicine with any of the following medications: cidofovir ketorolac methotrexate pemetrexed This medicine may also interact with the following medications: alcohol aspirin diuretics lithium other drugs for inflammation like prednisone warfarin What if I miss a dose? If you miss a dose, take it as soon as you can. If it is almost time for your next dose, take only that dose. Do not take double or extra doses. Where should I keep my medicine? Keep out of the reach of children. Store at room temperature between 15 and 30 degrees C (59 and 86 degrees F). Keep container tightly closed. Throw away any unused medicine after the expiration date. What should I tell my health care provider before I take this medicine? They need to know if you have any of these conditions: asthma cigarette smoker drink more than 3 alcohol containing drinks a day heart disease or circulation problems such as heart failure or leg edema (fluid retention) high blood pressure kidney disease liver disease stomach bleeding or ulcers an unusual or allergic reaction to ibuprofen, aspirin, other NSAIDS, other medicines, foods, dyes, or preservatives or trying to get breast-feeding What should I watch for while using this medicine? Tell your doctor or healthcare professional if your symptoms do not start to get better or if they get worse. This medicine does not prevent heart attack or stroke. In fact, this medicine may increase the chance of a heart attack or stroke. The chance may increase with longer use of this medicine and in people who have heart disease. If you take aspirin to prevent heart attack or stroke, talk with your doctor or health healthcare advisory services manager. Do not take other medicines that contain aspirin, ibuprofen, or naproxen with this medicine. Side effects such as stomach upset, nausea, or ulcers may be more likely to occur. Many medicines available without a prescription should not be taken with this medicine. This medicine can cause ulcers and bleeding in the stomach and intestines at any time during treatment. Ulcers and bleeding can happen without warning symptoms and can cause . To reduce your risk, do not smoke cigarettes or drink alcohol while you are taking this medicine. You may get drowsy or dizzy. Do not drive, use machinery, or do anything that needs mental alertness until you know how this medicine affects you. Do not stand or sit up quickly, especially if you are an older patient. This reduces the risk of dizzy or fainting spells. This medicine can cause you to bleed more easily. Try to avoid damage to your teeth and gums when you brush or floss your teeth. You have been given the following additional information: Abscess, Incision And Drainage MRSA Skin Infection, Suspected Or Confirmed Ondansetron Oral disintegrating tablet Prednisone Oral tablet Sulfamethoxazole, Trimethoprim Oral tablet Clindamycin Hydrochloride Oral capsule Hydrocodone Bitartrate, Acetaminophen Oral tablet Ibuprofen Oral tablet (Electronically signed by Kaitlynn Sun A.R.N.P. 12/12/2016 22:48)
== END 2016-12-12 21:25 | disposition home or self-care (01) ==
LOC: ED SRH 15:46
DX: K61.1 Rectal abscess (principal); Z79.899 Other long term (current) drug therapy
CPT/HCPCS: 90065; 90074; 90100; 92031; 93004; 95059